=== PATIENT | female | born 1995 | race Caucasian/White ===

== ENCOUNTER 2018-04-19 06:29 | Emergency (ER) | payer BC ==
[~2018-04-19] VITALS: Ht 157.5 cm; Wt 50.0 kg
[2018-04-19 06:40] VITALS: TEMP 98.2
[2018-04-19 07:43] LABS: HEMATOCRIT 37.8 % (35.0-45.0); MEAN CELL VOLUME 84 fl (80.0-95.0); MEAN CORPUSCULAR HEMOGLOBIN 27 pg (26.0-32.0); MEAN CORPUSCULAR HGB CONC 32 g/dl (33.0-37.0); MEAN PLATELET VOLUME 10.2 fl (7.4-10.4); PLATELET COUNT 180 K/mm3 (130-400); REDCELL DISTRIBUTION WIDTH-CV 15.6 % (11.5-14.5)
[2018-04-19 07:54] LABS: MONOSCREEN POSITIVE
[2018-04-19 07:56] LABS: ALBUMIN 4.1 gm/dL (3.5-5.0); CALCIUM 9.2 mg/dL (8.4-10.2); CREATININE, serum 0.78 mg/dL (0.52-1.25); POTASSIUM 4.1 mmol/L (3.4-5.0); TOTAL PROTEIN 7.7 gm/dL (6.4-8.2)
[2018-04-19 08:18] LABS: COLLECTION METHOD CLEAN CATCH
[2018-04-19 08:20] VITALS: BP 136/77; PULSE 76
[2018-04-19 08:23] LABS: MUCOUS Present /lpf; PH 6 (5-8); SQUAMOUS EPITHELIAL 0-2 /hpf; URINE APPEARANCE Clear; URINE BACTERIA None Seen /hpf; URINE BILIRUBIN Negative (NEGATIVE); URINE BLOOD 1+ (NEGATIVE); URINE COLOR Amber; URINE GLUCOSE Negative (NEGATIVE); URINE KETONE 1+ (NEGATIVE); URINE LEUKOCYTE ESTERASE Negative (NEGATIVE); URINE NITRATE Negative (NEGATIVE); URINE PROTEIN(semi-quant) 1+ (NEGATIVE); URINE UROBILINOGEN >=4.0 mg/dL (NEGATIVE)
[2018-04-19 08:53] LABS: BAND 14 % (0-10); MYELOCYTE 1 % (0-0); NEUTROPHILS 38 % (42.0-75.2); PLATELET ESTIMATE NORMAL (NORMAL)
[2018-04-19] MEDS ORDERED: ZOFRAN ODT4 MG PO (08:54)
[2018-04-19 08:57] LABS: LYMPHOCYTE 34 % (20.0-51.0)
== END 2018-04-19 08:55 | disposition home or self-care (01) ==
LOC: COL.ER 06:29
PROVIDERS: Emergency Medicine
DX: B27.90 Infectious mononucleosis, unspecified without complication (principal)
CPT/HCPCS: J1100; J1885; J7030